=== PATIENT | female | born 1955 | race Caucasian/White ===

== ENCOUNTER → 2018-06-26 | Outpatient (CLI) | payer BC | LOC: MC.RAD 06-19 11:40 | DX: Z12.31 Encounter for screening mammogram for malignant neoplasm of breast (principal) ==

== ENCOUNTER → 2019-10-15 | Outpatient (CLI) | payer BC | LOC: MC.RAD 11:45 | DX: Z12.31 Encounter for screening mammogram for malignant neoplasm of breast (principal) ==

== ENCOUNTER 2019-12-27 06:59 | Day surgery (SDC) | payer BC ==
[~2019-12-27] VITALS: Ht 161.3 cm; Wt 50.0 kg
[2019-12-27 07:16] VITALS: BP 111/75; PULSE 73; TEMP 98
[2019-12-27] MEDS ORDERED: ZYRTEC 10MG10 MG PO (07:19)
[2019-12-27 09:00] VITALS: BP 124/89; PULSE 56; TEMP 97.2
[2019-12-27 09:15] VITALS: BP 119/91; PULSE 59
[2019-12-27 09:30] VITALS: BP 138/88; PULSE 58
[2019-12-27 10:54] VITALS: BP 111/75; PULSE 63; TEMP 98
--- NOTE | 2019-12-27 11:05 | NUR ---
0900 ARRIVED TO [facility] VIA CART. AMBULATED TO CHAIR WITH SBA. REQUESTED TOAST AND WATER. VSS. DENIES COMPLAINT. 914 TOLERATED TOAST AND WATER. NOW TAKING COFFEE WITH CREAM AND BLUEBERRY MUFFIN PO. DENIES COMPLAINT. 929 IV D/C'D. CATH TIP INTACT. TOLERATED WELL. VERBAL AND WRITTEN DISCHARGE INSTRUCTIONS AND PATIENT EDUCATION GIVEN. PATIENT VERBALIZED UNDERSTANDING. 0935 DR. DE SOUZA IN ROOM SPEAKING WITH PATIENT ABOUT RESULTS OF PROCEDURE. 0955 PT DRESSED AND UP TO BR INDEPENDENTLY WITH SBA. 1000 DISCHARGED TO [facility] VIA W/C.
== END 2019-12-27 10:00 | disposition home or self-care (01) ==
LOC: SDCO 06:59
DX: Z12.11 Encounter for screening for malignant neoplasm of colon (principal); D12.2 Benign neoplasm of ascending colon; D12.3 Benign neoplasm of transverse colon; K63.5 Polyp of colon; K57.30 Diverticulosis of large intestine without perforation or abscess without bleeding; R87.810 Cervical high risk human papillomavirus (HPV) DNA test positive; L71.9 Rosacea, unspecified; M17.0 Bilateral primary osteoarthritis of knee; J30.9 Allergic rhinitis, unspecified; Z79.899 Other long term (current) drug therapy; Z88.2 Allergy status to sulfonamides
CPT/HCPCS: J2704; J7120

== ENCOUNTER → 2021-07-27 | Outpatient (CLI) | payer BC ==
[~2021-07-27] MED LIST: ZYRTEC 10MG10 MG PO
== END ==
LOC: MC.RAD 13:28
DX: Z12.31 Encounter for screening mammogram for malignant neoplasm of breast (principal)

== ENCOUNTER → 2022-08-11 | Outpatient (CLI) | payer BC | LOC: MC.RAD 13:09 | DX: Z12.31 Encounter for screening mammogram for malignant neoplasm of breast (principal) ==

== ENCOUNTER → 2023-08-23 | Outpatient (CLI) | payer BC ==
[~2023-08-23] MED LIST changes: +ANUSOL HC CREAM30 GM TP; +BACTROBAN15 GM TOP; +ESTRACE0.1 MG/GM VG; +GOOD NEIGH3.4 GM/Dos PO; +LUTEIN20 M1 PO; +MASON NATURAL1000 MG PO; +MOTRIN 400400 MG/TAB PO; +MULTI VITAMINS1 TAB PO; +NORVASC 5MG5 MG/TAB PO; +PRINIVIL20 MG PO; +PROBIOTIC-MAJOR PO; +TRIAMCINOLONE A15 G1 TP
== END ==
LOC: MC.RAD 13:36
DX: Z12.31 Encounter for screening mammogram for malignant neoplasm of breast (principal)